=== PATIENT | female | born 1980 | race Native Hawaiian/Other Pacific Islander ===

== ENCOUNTER 2019-11-15 11:28 | Emergency (ER) | payer MEDICAID ==
--- NOTE | 2019-11-15 12:02 | Event Note ---
ED Screening Note Date of service: 11/15/19 ED Screening Note: This initial assessment/diagnostic orders/clinical plan/treatment(s) is/are subject to change based on patients health status, clinical progression and re- assessment by fellow clinical providers in the ED. Further treatment and workup at subsequent clinical providers discretion. Patient/guardian urged not to elope from the ED as their condition may be serious if not clinically assessed and managed. Initial orders include:
[2019-11-15] MEDS ORDERED: levETIRAcetam 1000 MG/NS 0.75% 1,000 MG/100 ML BAG IV ONE (12:55)
[2019-11-15] MEDS ORDERED: METOCLOPRAMIDE 10 MG/2 ML INJ IV ONE (12:55)
[2019-11-15] MEDS ORDERED: fentaNYL 100 MCG/2 ML INJ IV ONE (12:55)
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
--- NOTE | 2019-11-15 12:57 | Cat Scan Report ---
NONENHANCED CT SCAN OF THE HEAD: INDICATION / CLINICAL INFORMATION: 39 years Female; headache. TECHNIQUE: Routine CT head without contrast. All CT scans at this location are performed using CT dos e reduction for ALARA by means of automated exposure control. COMPARISON: None. FINDINGS: BRAIN / INTRACRANIAL CONTENTS: Abnormal CT scan; mixed attenuation right-sided subdural hematoma with maximum width of 7 mm; this is extending around the entire lateral convexity of the right cerebral h emisphere; increased is CT attenuation around right temporal lobe suggest more acute subdural hematom a; right to left midline shift of 3 mm; high convexity cortical sulci are effaced on the right side CRANIOCERVICAL JUNCTION: No significant abnormality. ORBITS: No significant abnormality of visualized orbits. SINUSES / MASTOIDS: No significant abnormality of the visualized paranasal sinuses or mastoid air sol ls. ADDITIONAL FINDINGS: None. IMPRESSION: Mixed attenuation subdural hematoma on the right side with maximum thickness of approximately 7 mm; r ight to left midline shift of approximately 3 mm the graft These findings are considered critical va lue. The exam was completed on 11/15/2019 11:43 AM. The exam was reviewed at 11:[address] Pacheco was notified at 11:53 AM. Signer Name: Pal Weiss MD Signed: 11/15/2019 12:53 PM Workstation Name: [email or web address]
[2019-11-15 13:48] LABS: Basophils % (Auto) 0.4 % (0.0-1.8); Eosinophils % (Auto) 0.3 % (0.0-4.3); Hematocrit 34.8 % (30.3-42.9); Hemoglobin 11.7 gm/dl (10.1-14.3); Lymphocytes # (Auto) 1.2 K/mm3 (1.2-5.4); Lymphocytes % (Auto) 21.6 % (13.4-35.0); Mean Corpuscular HGB Conc 34 % (30-34); Mean Corpuscular Volume 89 fl (79-97); Monocytes # (Auto) 0.4 K/mm3 (0.0-0.8); Monocytes % (Auto) 7.2 % (0.0-7.3); Platelet Count 181 K/mm3 (140-440); Red Cell Distribution Width 15.1 % (13.2-15.2)
[2019-11-15 13:51] VITALS: BP 102/81
[2019-11-15 13:57] LABS: INR 1.08 (0.87-1.13)
[2019-11-15 13:58] LABS: Partial Thromboplastin Time 33.7 Sec. (24.2-36.6)
[2019-11-15 14:11] LABS: Alanine Aminotransferase 168 units/L (7-56); Albumin 3.8 g/dL (3.9-5); BUN/Creatinine Ratio 18; Blood Urea Nitrogen 11 mg/dL (7-17); Calcium 8.8 mg/dL (8.4-10.2); Hemolysis Index 14
[2019-11-15 14:15] LABS: Bilirubin,Direct < 0.2 mg/dL (0-0.2)
== END 2019-11-15 14:03 | disposition short-term general hospital (02) ==
LOC: ED 11:28
DX: S06.5X0A Traumatic subdural hemorrhage without loss of consciousness, initial encounter (principal); Z21 Asymptomatic human immunodeficiency virus [HIV] infection status; Z88.1 Allergy status to other antibiotic agents; Y04.0XXA Assault by unarmed brawl or fight, initial encounter; Y93.89 Activity, other specified; Y92.89 Other specified places as the place of occurrence of the external cause; Y99.8 Other external cause status
CPT/HCPCS: 36415; 70450; 80048; 80076; 83735; 85025; 85610; 85730; 96365; 96375; 99285; J1953; J2765; J3010

== ENCOUNTER 2019-12-02 12:03 | Emergency (ER) | payer MEDICAID ==
[2019-12-02 12:08] VITALS: BP 123/84
--- NOTE | 2019-12-02 12:40 | Emergency Department Report ---
ED ENT HPI - General Chief complaint: Dental/Oral Stated complaint: LFT SIDE TOOTHACHE/SWELLING/PAIN Time Seen by Provider: 12/02/19 12:34 Source: patient Mode of arrival: Ambulatory Limitations: No Limitations - History of Present Illness Initial comments: This is a 39-year-old female nontoxic well in appearance with no signs of distress presents to the ED with complaint of toothache. Patient denies any facial swelling. Denies following up with a dentist. Denies any fever, chills, headache, nausea, vomiting, chest pain or SOB. Denies any other complaints. Denies any allergies. PMH is HIV. MD complaint: tooth pain -: days(s) Location: tooth # Severity: mild Severity scale (0 -10): 8 Quality: aching Consistency: constant Improves with: none Worsens with: none Context- Dental: history of dental caries, poor dental care Associated Symptoms: gum swelling, toothache. denies: fever, cough, pain with swallowing, sore throat, tinnitus, hearing loss, discharge from ear, rhinorrhea - Related Data Previous Rx's Medication Instructions Recorded Last Taken Type Clindamycin [Clindamycin CAP] 300 mg PO Q8H #21 cap 12/02/19 Unknown Rx Allergies Allergy/AdvReac Type Severity Reaction Status Date / Time cephalexin [From Keflex] Allergy Hives Verified 12/02/19 12:04 ED Dental HPI - General Chief complaint: Dental/Oral Stated complaint: LFT SIDE TOOTHACHE/SWELLING/PAIN Time Seen by Provider: 12/02/19 12:34 Source: patient Mode of arrival: Ambulatory Limitations: No Limitations - Related Data Previous Rx's Medication Instructions Recorded Last Taken Type Clindamycin [Clindamycin CAP] 300 mg PO Q8H #21 cap 12/02/19 Unknown Rx Allergies Allergy/AdvReac Type Severity Reaction Status Date / Time cephalexin [From Keflex] Allergy Hives Verified 12/02/19 12:04 ED Review of Systems ROS: Stated complaint: LFT SIDE TOOTHACHE/SWELLING/PAIN Other details as noted in HPI Constitutional: denies: chills, fever Eyes: denies: eye pain, eye discharge, vision change ENT: dental pain. denies: ear pain, throat pain Respiratory: denies: cough, shortness of breath, wheezing Cardiovascular: denies: chest pain, palpitations Endocrine: no symptoms reported Gastrointestinal: denies: abdominal pain, nausea, diarrhea Genitourinary: denies: urgency, dysuria, discharge Musculoskeletal: denies: back pain, joint swelling, arthralgia Skin: denies: rash, lesions Neurological: denies: headache, weakness, paresthesias Psychiatric: denies: anxiety, depression Hematological/Lymphatic: denies: easy bleeding, easy bruising ED Past Medical Hx - Past Medical History Hx HIV: Yes Additional medical history: Hep C/ SUBDURAL BLEED - Social History Smoking Status: Never Smoker Substance Use Type: None - Medications Home Medications: Home Medications Medication Instructions Recorded Confirmed Last Taken Type Clindamycin [Clindamycin CAP] 300 mg PO Q8H #21 cap 12/02/19 Unknown Rx ED Physical Exam - General Limitations: No Limitations General appearance: alert, in no apparent distress - Head Head exam: Present: atraumatic, normocephalic - Expanded ENT Exam Expanded Ear exam: Present: normal external inspection Mouth exam: Present: normal external inspection. Absent: drooling, trismus, muffled voice Teeth exam: Present: dental caries, fractured tooth #, dental tenderness #, gingival enlargement, other (no facial swelling. no cellulitis.) Throat exam: Positive: normal inspection, other (uvula midline). Negative: tonsillar erythema, tonsillomegaly, tonsillar exudate, R peritonsillar mass, L peritonsillar mass - Neck Neck exam: Present: normal inspection, full ROM. Absent: tenderness, meningismus, lymphadenopathy - Extremities Exam Extremities exam: Present: full ROM - Back Exam Back exam: Present: full ROM - Neurological Exam Neurological exam: Present: alert, oriented X3, normal gait - Psychiatric Psychiatric exam: Present: normal affect, normal mood - Skin Skin exam: Present: warm, dry, intact, normal color. Absent: rash ED Course Vital Signs 12/02/19 12:07 Temperature 98 F Pulse Rate 79 Respiratory 18 Rate Blood Pressure 123/84 [Left] O2 Sat by Pulse 100 Oximetry - Reevaluation(s) Reevaluation #1: 12/02/19 12:41 Patient is speaking in full sentences with signs of distress noted. ED Medical Decision Making - Medical Decision Making Patient was instructed to Follow-up with a dentist doctor in 2 days or if symptoms worsen and continue return to emergency room as soon as possible. At time of discharge, the patient does not seem toxic or ill in appearance. No acute signs of distress noted. Patient agrees to discharge treatment plan of care. No further questions noted by the patient. Critical care attestation.: If time is entered above; I have spent that time in minutes in the direct care of this critically ill patient, excluding procedure time. ED Disposition Clinical Impression: Dental caries, Gingivitis Disposition: MED SCREENING EXAM-CONT Is pt being admited?: No Does the pt Need Aspirin: No Condition: Stable Instructions: Dental Caries (ED), Gingivitis (ED) Additional Instructions: Follow-up with a dentist doctor in 2 days or if symptoms worsen and continue return to emergency room as soon as possible. Prescriptions: Clindamycin [Clindamycin CAP] 300 mg PO Q8H #21 cap Referrals: PRIMARY CAREMD [Referring] - 3-5 Days GIOVANNA CONLEY MD [Staff Physician] - 3-5 Days [facility] [Outside] - 3-5 Days
== END 2019-12-02 13:02 | disposition home or self-care (01) ==
LOC: ED 12:03
DX: K05.10 Chronic gingivitis, plaque induced (principal); K02.9 Dental caries, unspecified; Z21 Asymptomatic human immunodeficiency virus [HIV] infection status; Z79.899 Other long term (current) drug therapy
CPT/HCPCS: 99282

== ENCOUNTER 2019-12-17 08:02 | Emergency (ER) | payer MEDICAID ==
[2019-12-17 08:10] VITALS: BP 114/66
--- NOTE | 2019-12-17 09:59 | Emergency Department Report ---
ED General Adult HPI - General Chief complaint: Upper Respiratory Infection Stated complaint: ASTHMA Time Seen by Provider: 12/17/19 09:39 Source: patient Mode of arrival: Ambulatory Limitations: No Limitations - History of Present Illness Initial comments: Patient is a 39-year-old F [place] female who is presenting with cough cold and congestion. Patient does have a history of asthma is has a productive cough with clear sputum for the last 4 days. She denies fevers chills. Patient states she no longer has medication for her nebulizer machine. Patient does have a rescue inhaler but does not seem to have any relief with rescue inhaler. Patient denies nausea vomiting neck stiffness or sore throat at this time. She denies body aches. - Related Data Previous Rx's Medication Instructions Recorded Last Taken Type Clindamycin [Clindamycin CAP] 300 mg PO Q8H #21 cap 12/02/19 Unknown Rx ALBUTEROL NEB's [Proventil 0.083% 5 mg IH TID PRN #20 neb 12/17/19 Unknown Rx NEBS] Brompheniramine/Pseudoephed/Dm 5 ml PO Q6HR PRN #100 syrup 12/17/19 Unknown Rx [Bromfed Dm Cough Syrup] predniSONE [Deltasone] 20 mg PO QDAY #5 tab 12/17/19 Unknown Rx Allergies Allergy/AdvReac Type Severity Reaction Status Date / Time cephalexin [From Keflex] Allergy Hives Verified 12/02/19 12:04 Penicillins Allergy Hives Verified 12/02/19 12:44 ED Review of Systems ROS: Stated complaint: ASTHMA Other details as noted in HPI Comment: All other systems reviewed and negative ED Past Medical Hx - Past Medical History Previous Medical History?: Yes Hx Asthma: Yes Hx HIV: Yes Additional medical history: Hep C/ SUBDURAL BLEED - Surgical History Past Surgical History?: No - Social History Smoking Status: Never Smoker Substance Use Type: None - Medications Home Medications: Home Medications Medication Instructions Recorded Confirmed Last Taken Type Clindamycin [Clindamycin CAP] 300 mg PO Q8H #21 cap 12/02/19 Unknown Rx ALBUTEROL NEB's [Proventil 0.083% 5 mg IH TID PRN #20 neb 12/17/19 Unknown Rx NEBS] Brompheniramine/Pseudoephed/Dm 5 ml PO Q6HR PRN #100 syrup 12/17/19 Unknown Rx [Bromfed Dm Cough Syrup] predniSONE [Deltasone] 20 mg PO QDAY #5 tab 12/17/19 Unknown Rx ED Physical Exam - General Limitations: No Limitations General appearance: alert, in no apparent distress - Head Head exam: Present: atraumatic, normocephalic - Eye Eye exam: Present: normal appearance - ENT ENT exam: Present: normal orophraynx, mucous membranes moist - Neck Neck exam: Present: normal inspection - Respiratory Respiratory exam: Present: rhonchi, prolonged expiratory. Absent: normal lung sounds bilaterally, respiratory distress, wheezes, rales - Cardiovascular Cardiovascular Exam: Present: regular rate, normal rhythm, normal heart sounds. Absent: systolic murmur, diastolic murmur, rubs, gallop - GI/Abdominal GI/Abdominal exam: Present: soft, normal bowel sounds. Absent: distended, tenderness, guarding, rebound - Extremities Exam Extremities exam: Present: normal inspection - Back Exam Back exam: Present: normal inspection - Neurological Exam Neurological exam: Present: alert, oriented X3 - Psychiatric Psychiatric exam: Present: normal affect, normal mood - Skin Skin exam: Present: warm, dry, intact, normal color. Absent: rash ED Course Vital Signs 12/17/19 08:06 Temperature 97.8 F Pulse Rate 77 Respiratory 16 Rate Blood Pressure 114/66 O2 Sat by Pulse 98 Oximetry ED Medical Decision Making - Medical Decision Making Patient with bronchitic cough and prolonged expiratory phase. Patient said O2 sat is within normal limits. Patient likely with mild asthma exacerbation. Patient be started on steroid therapy to halt the progress of this disease. Patient also started on albuterol for her nebulizer machine. Patient discharged home. Critical care attestation.: If time is entered above; I have spent that time in minutes in the direct care of this critically ill patient, excluding procedure time. ED Disposition Clinical Impression: Bronchospasm Asthma exacerbation Qualifiers: Asthma severity: mild Asthma persistence: unspecified Qualified Code(s): J45.901 - Unspecified asthma with (acute) exacerbation Acute bronchitis Qualifiers: Bronchitis organism: unspecified organism Qualified Code(s): J20.9 - Acute bronchitis, unspecified Disposition: DC- TO HOME OR SELFCARE Is pt being admited?: Yes Does the pt Need Aspirin: No Condition: Stable Instructions: Acute Bronchitis (ED), Asthma (ED) Referrals: PRIMARY CARE, [Primary Care Provider] - 3-5 Days Time of Disposition: 09:58
== END 2019-12-17 10:27 | disposition home or self-care (01) ==
LOC: ED 08:02
DX: J45.901 Unspecified asthma with (acute) exacerbation (principal); J20.9 Acute bronchitis, unspecified
CPT/HCPCS: 99282

== ENCOUNTER 2020-04-06 14:52 | Emergency (ER) | payer MEDICAID ==
--- NOTE | 2020-04-06 15:19 | Event Note ---
ED Screening Note ED Screening Note: states that she fell and [place] states since then having RYAN, n/v, tingling in the BUE no vision changes, no gait disturbance, no speech disturbance, no numbness weakness BLE/BUE hx of SDH s/p craniotomy performed at [place] PMx HIV, asthma allergy: keflex/PCN This initial assessment/diagnostic orders/clinical plan/treatment(s) is/are subject to change based on patients health status, clinical progression and re- assessment by fellow clinical providers in the ED. Further treatment and workup at subsequent clinical providers discretion. Patient/guardian urged not to elope from the ED as their condition may be serious if not clinically assessed and managed. Initial orders include: CT head
--- NOTE | 2020-04-06 16:18 | Cat Scan Report ---
CT head/brain wo con INDICATION / CLINICAL INFORMATION: 39 years Female; fall hit head a week ago, n/v, hx subdural. TECHNIQUE: Routine CT head without contrast. All CT scans at this location are performed using CT dos e reduction for ALARA by means of automated exposure control. COMPARISON: The study is compared to the previous CT of 11/15/2019. FINDINGS: BRAIN / INTRACRANIAL CONTENTS: There has been interval right frontal craniotomy and evacuation of the mixed attenuation right subdural hematoma from the previous CT. There is no CT evidence of acute int racranial hemorrhage. The ventricular system is appropriate in size and configuration. The brain pare nchyma appears to demonstrate appropriate attenuation without significant interval change. ORBITS: No significant abnormality of visualized orbits. SINUSES / MASTOIDS: There is small air-fluid level along the posterior left sphenoid sinus. CRANIOCERVICAL JUNCTION: No significant abnormality. ADDITIONAL FINDINGS: None. IMPRESSION: 1. Status post interval right frontal craniotomy and evacuation of right subdural hematoma from 020. There is no CT evidence of acute intracranial hemorrhage. 2. There is small air-fluid level along the posterior left sphenoid sinus. Signer Name: Mumtaz Acosta MD Signed: 04/06/2020 4:13 PM Workstation Name: [id number]
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
[2020-04-06 18:27] VITALS: BP 109/64
[2020-04-06] MEDS ORDERED: ONDANSETRON 4 MG ODT TAB PO ONE (18:29)
[2020-04-06] MEDS: ACETAMINOPHEN 500 MG TAB PO ONE ×2 (18:36→18:46)
== END 2020-04-06 18:47 | disposition home or self-care (01) ==
LOC: ED 14:52
DX: S06.0X9A Concussion with loss of consciousness of unspecified duration, initial encounter (principal); S00.03XA Contusion of scalp, initial encounter; J45.909 Unspecified asthma, uncomplicated; Z21 Asymptomatic human immunodeficiency virus [HIV] infection status; Z79.899 Other long term (current) drug therapy; W19.XXXA Unspecified fall, initial encounter; Y93.89 Activity, other specified; Y92.89 Other specified places as the place of occurrence of the external cause; Y99.8 Other external cause status
CPT/HCPCS: 70450; 99283; Q0162

== ENCOUNTER 2020-04-23 12:46 | Emergency (ER) | payer MEDICAID ==
[2020-04-23 13:10] VITALS: BP 143/84
== END 2020-04-23 17:07 | disposition left against medical advice (07) ==
LOC: ED 12:46
DX: R05 Cough (principal); R06.00 Dyspnea, unspecified; Z53.21 Procedure and treatment not carried out due to patient leaving prior to being seen by health care provider

== ENCOUNTER 2020-05-24 23:25 | Emergency (ER) | payer MEDICAID ==
--- NOTE | 2020-05-24 23:43 | Emergency Department Report ---
History of Present Illness - General Chief Complaint: Overdose Stated Complaint: OVERDOSE Time Seen by Provider: 05/24/20 23:37 - History of Present Illness Initial Comments: Patient is a 39-year-old female that presents emergency room for an overdose. Patient brought in by EMS. EMS gave the patient Narcan because the patient was unresponsive and satting 69%. After the Narcan, the patient became alert and oriented and her vital signs stabilized. Patient stated she took heroin. Patient states she overdosed on heroin in order to try to kill herself. Patient states been having suicidal ideations for weeks. Patient states she overdosed 1 week ago. Patient states she is been having a lot of life stressors due to familial disputes. Patient denies homicidal ideations. Patient denies hallucinations. MD Complaint: intentional overdose - Related Data Home Medications Medication Instructions Recorded Confirmed Last Taken Albuterol Sulfate [Proventil Hfa] 1 puff INHALATION PRN 05/25/20 05/25/20 Unknown Biktarvy 50-200-25 mg (Nf) 1 tab PO DAILY 05/25/20 05/25/20 Unknown Duloxetine HCl [Drizalma Sprinkle] 40 mg PO DAILY 05/25/20 05/25/20 Unknown Gabapentin [Neurontin] 300 mg PO Q8HR 05/25/20 05/25/20 Unknown Sulfamethoxazole/Trimethoprim 1 each PO DAILY 05/25/20 05/25/20 Unknown [Bactrim 400-80 mg Tablet] Allergies Allergy/AdvReac Type Severity Reaction Status Date / Time cephalexin [From Keflex] Allergy Hives Verified 04/23/20 13:08 Penicillins Allergy Hives Verified 04/23/20 13:08 ED Review of Systems ROS: Stated complaint: OVERDOSE Other details as noted in HPI Constitutional: denies: chills, fever Eyes: denies: eye pain, eye discharge, vision change ENT: denies: ear pain, throat pain Respiratory: denies: cough, shortness of breath, wheezing Cardiovascular: denies: chest pain, palpitations Endocrine: no symptoms reported Gastrointestinal: denies: abdominal pain, nausea, diarrhea Genitourinary: denies: urgency, dysuria, discharge Musculoskeletal: denies: back pain, joint swelling, arthralgia Skin: denies: rash, lesions Neurological: denies: headache, weakness, paresthesias Psychiatric: depression, suicidal thoughts. denies: anxiety Hematological/Lymphatic: denies: easy bleeding, easy bruising ED Past Medical Hx - Past Medical History Previous Medical History?: Yes Hx Asthma: Yes Hx HIV: Yes Additional medical history: Hep C/ SUBDURAL BLEED/ HIV - Surgical History Past Surgical History?: Yes Additional Surgical History: Craniotomy 11/2019 - Family History Family history: no significant - Social History Smoking Status: Never Smoker Substance Use Type: None, Other - Medications Home Medications: Home Medications Medication Instructions Recorded Confirmed Last Taken Type Albuterol Sulfate [Proventil Hfa] 1 puff INHALATION PRN 05/25/20 05/25/20 U nknown History Biktarvy 50-200-25 mg (Nf) 1 tab PO DAILY 05/25/20 05/25/20 Unknown History Duloxetine HCl [Drizalma Sprinkle] 40 mg PO DAILY 05/25/20 05/25/20 Unknown History Gabapentin [Neurontin] 300 mg PO Q8HR 05/25/20 05/25/20 Unknown History Sulfamethoxazole/Trimethoprim 1 each PO DAILY 05/25/20 05/25/20 Unknown History [Bactrim 400-80 mg Tablet] ED Physical Exam - General Limitations: No Limitations General appearance: alert, in no apparent distress - Head Head exam: Present: atraumatic, normocephalic - Eye Eye exam: Present: normal appearance - ENT ENT exam: Present: mucous membranes moist - Neck Neck exam: Present: normal inspection - Respiratory Respiratory exam: Present: normal lung sounds bilaterally. Absent: respiratory distress - Cardiovascular Cardiovascular Exam: Present: regular rate, normal rhythm. Absent: systolic murmur, diastolic murmur, rubs, gallop - GI/Abdominal GI/Abdominal exam: Present: soft, normal bowel sounds - Extremities Exam Extremities exam: Present: normal inspection - Back Exam Back exam: Present: normal inspection - Neurological Exam Neurological exam: Present: alert, oriented X3 - Psychiatric Psychiatric exam: Present: depressed, anxious - Skin Skin exam: Present: warm, dry, intact, normal color. Absent: rash ED Course Vital Signs 05/24/20 05/25/20 05/25/20 23:44 00:15 00:30 Temperature 97.9 F Pulse Rate 133 H 111 H 108 H Respiratory 20 19 16 Rate Blood Pressure 122/78 117/72 Blood Pressure 141/72 [Left] O2 Sat by Pulse 98 97 94 Oximetry 05/25/20 05/25/20 05/25/20 00:45 01:00 01:15 Temperature Pulse Rate 104 H 102 H Respiratory 15 17 Rate Blood Pressure 115/74 127/80 134/84 Blood Pressure [Left] O2 Sat by Pulse 93 92 93 Oximetry 05/25/20 05/25/20 05/25/20 01:31 01:45 02:00 Temperature Pulse Rate 87 Respiratory 19 Rate Blood Pressure 134/84 121/84 118/57 Blood Pressure [Left] O2 Sat by Pulse 99 93 95 Oximetry 05/25/20 05/25/20 05/25/20 02:15 02:30 02:45 Temperature Pulse Rate 84 94 H 89 Respiratory 18 18 19 Rate Blood Pressure 126/69 125/79 107/63 Blood Pressure [Left] O2 Sat by Pulse 95 95 94 Oximetry 05/25/20 05/25/20 05/25/20 03:00 03:15 04:15 Temperature Pulse Rate 110 H Respiratory 18 12 14 Rate Blood Pressure 141/90 126/84 114/71 Blood Pressure [Left] O2 Sat by Pulse 99 99 100 Oximetry 05/25/20 05/25/20 05/25/20 04:30 04:45 05:00 Temperature Pulse Rate 94 H 86 Respiratory 22 17 19 Rate Blood Pressure 124/71 113/72 126/77 Blood Pressure [Left] O2 Sat by Pulse 96 96 97 Oximetry 05/25/20 05/25/20 05/25/20 05:45 06:01 06:15 Temperature Pulse Rate 84 100 H 78 Respiratory 19 23 16 Rate Blood Pressure 120/77 108/68 120/74 Blood Pressure [Left] O2 Sat by Pulse 99 100 97 Oximetry 05/25/20 05/25/20 05/25/20 06:30 06:45 07:00 Temperature Pulse Rate 81 74 86 Respiratory 14 9 L 20 Rate Blood Pressure 97/56 101/63 109/65 Blood Pressure [Left] O2 Sat by Pulse 98 97 Oximetry 05/25/20 05/25/20 05/25/20 07:15 07:21 07:30 Temperature Pulse Rate 76 72 84 Respiratory 17 18 20 Rate Blood Pressure 105/60 99/58 Blood Pressure 105/60 [Left] O2 Sat by Pulse 97 98 Oximetry 05/25/20 05/25/20 05/25/20 07:45 08:00 08:15 Temperature Pulse Rate 93 H 97 H 72 Respiratory 14 14 18 Rate Blood Pressure 99/58 126/69 113/67 Blood Pressure [Left] O2 Sat by Pulse 100 99 100 Oximetry 05/25/20 05/25/20 05/25/20 08:30 08:45 09:01 Temperature Pulse Rate 75 69 82 Respiratory 17 17 21 Rate Blood Pressure 103/61 100/55 129/91 Blood Pressure [Left] O2 Sat by Pulse 99 98 Oximetry 05/25/20 05/25/20 05/25/20 09:15 09:30 09:31 Temperature Pulse Rate 72 86 Respiratory 19 16 18 Rate Blood Pressure 121/83 133/85 Blood Pressure [Left] O2 Sat by Pulse 99 99 Oximetry 05/25/20 05/25/20 05/25/20 09:45 10:01 10:15 Temperature Pulse Rate 85 69 88 Respiratory 15 13 14 Rate Blood Pressure 108/66 146/85 133/71 Blood Pressure [Left] O2 Sat by Pulse 93 95 90 Oximetry 05/25/20 05/25/20 05/25/20 10:31 10:45 11:02 Temperature Pulse Rate Respiratory Rate Blood Pressure 133/71 133/71 133/71 Blood Pressure [Left] O2 Sat by Pulse 79 L Oximetry 05/25/20 05/25/20 05/25/20 11:17 11:31 12:13 Temperature Pulse Rate Respiratory Rate Blood Pressure 133/71 133/71 133/71 Blood Pressure [Left] O2 Sat by Pulse 94 75 L Oximetry 05/25/20 05/25/20 05/25/20 12:16 12:29 16:17 Temperature 98.6 F Pulse Rate 72 63 Respiratory 18 18 Rate Blood Pressure 133/71 Blood Pressure 133/71 126/71 [Left] O2 Sat by Pulse 99 99 Oximetry - Reevaluation(s) Reevaluation #1: Initial evaluation done. Patient placed on a 1013. 05/24/20 23:45 Reevaluation #2: Patient's vital signs are stable. Patient on equipment monitor phototypesetting. Patient answering questions appropriately. 05/25/20 00:53 Reevaluation #3: Patient resting in room comfortably. Patient easily arousable. Patient's vital signs are stable. No hypoxia noted 05/25/20 02:50 JIMENEZ HELLER [facility] 1980 [id number] 05/25/20 03:21 - Nurse Note by MALICK WILKES Acct Num: [id number] : 1980 Patient Age: 39 [place] poison control: symptoms include - [employer]IC depression -RR depression -possible upset stomach recommendations: -repeat liver function enzyme (if continues to go up, give them a call back) -any symptomatic presentation: give supportive care info taken from [place]/ [facility] poison control. Initialized on 05/25/20 03:21 - END OF NOTE Reevaluation #4: Patient resting comfortably in the ER room. Patient has no signs of distress. Patient has normal oxygen saturation. Patient has received 2 L of fluid and the patient will have a repeat chemistry. 05/25/20 05:11 Reevaluation #5: I discussed all results with patient. I discussed plan of care with patient. Patient agrees with plan of care. Patient will remain in the ER as an ER hold. Patient is already on a 1013. Patient's final disposition will come from our psychiatry team. 05/25/20 05:53 ED Medical Decision Making - Lab Data Result diagrams: 05/25/20 00:00 05/25/20 05:05 - EKG Data -: EKG Interpreted by Me EKG shows normal: sinus rhythm, axis, intervals, QRS complexes, ST-T waves Rate: tachycardia - Medical Decision Making Patient is a 39-year-old female that presents emergency room with complaints of a heroin overdose, suicidal ideation and suicide attempt. Patient states she took the heroin in order to kill herself. After the initial evaluation, the patient was placed on a 1013 and an ER hold. Patient had labs done which showed elevated liver enzymes and abnormal chemistry. Poison control was consulted. Recommendations were received from poison control. Patient was given Narcan by EMS prior to arrival and the patient responded well. Patient's initial evaluation by EMS showed the patient to be minimally to unresponsive, decreased respirations and hypoxia. Immediately after Narcan in the field, the patient became more arousable and her vital signs stabilized. Patient had a PRN Narcan order placed. Patient found to be acutely intoxicated with alcohol. Patient also found to have a UTI. Patient at this time is medically cleared. Patient's final disposition will come from our psychiatry team. - Differential Diagnosis Overdose, suicide attempt, depression, suicidal ideations, Critical care attestation.: If time is entered above; I have spent that time in minutes in the direct care of this critically ill patient, excluding procedure time. ED Disposition Clinical Impression: Suicide attempt, Suicidal ideation Heroin overdose Qualifiers: Encounter type: initial encounter Injury intent: intentional self-harm Qualified Code(s): T40.1X2A - Poisoning by heroin, intentional self-harm, initial encounter Acute alcohol intoxication Qualifiers: Complication of substance-induced condition: with unspecified complication Qualified Code(s): F10.929 - Alcohol use, unspecified with intoxication, unspeci fied Depressed Qualifiers: Depression Type: unspecified Qualified Code(s): F32.9 - Major depressive disorder, single episode, unspecified UTI (urinary tract infection) Qualifiers: Urinary tract infection type: acute cystitis Hematuria presence: with hematuria Qualified Code(s): N30.01 - Acute cystitis with hematuria Disposition: DC/TX-65 PSY HOSP/PSY UNIT Is pt being admited?: No Does the pt Need Aspirin: No Condition: Stable Instructions: Urinary Tract Infection in Women (ED) Referrals: PRIMARY CARE, [Primary Care Provider] - 3-5 Days Time of Disposition: 05:55
[2020-05-24] MEDS ORDERED: SODIUM CHLORIDE 0.9% 1000 ML 1,000 ML IV ONE (23:45)
[2020-05-24] MEDS ORDERED: NALOXONE 0.4 MG/1 ML INJ IV PRN (23:46)
[2020-05-25 01:16] LABS: Basophils % (Auto) 0.3 % (0.0-1.8); Eosinophils # (Auto) 0.1 K/mm3 (0.0-0.4); Eosinophils % (Auto) 1.7 % (0.0-4.3); Hematocrit 35.2 % (30.3-42.9); Hemoglobin 11.8 gm/dl (10.1-14.3); Mean Corpuscular HGB Conc 34 % (30-34); Mean Corpuscular Volume 95 fl (79-97); Monocytes # (Auto) 0.5 K/mm3 (0.0-0.8); Platelet Count 118 K/mm3 (140-440); Red Blood Count 3.72 M/mm3 (3.65-5.03); Red Cell Distribution Width 18.8 % (13.2-15.2)
[2020-05-25 01:28] LABS: Alanine Aminotransferase 111 units/L (7-56); Albumin 3.7 g/dL (3.9-5); BUN/Creatinine Ratio 19; Blood Urea Nitrogen 19 mg/dL (7-17); Calcium 8.2 mg/dL (8.4-10.2); Hemolysis Index 3
[2020-05-25 02:54] LABS: Amphetamine Screen,Urine PRESUMPTIVE POSITIVE; Benzodiazepines Screen,Urine PRESUMPTIVE NEGATIVE; Cannabinoid Screen,Urine PRESUMPTIVE NEGATIVE; Cocaine Screen,Urine PRESUMPTIVE NEGATIVE; Methadone Screen,Urine PRESUMPTIVE NEGATIVE; Opiate Screen,Urine PRESUMPTIVE POSITIVE
[2020-05-25 02:57] LABS: Bacteria,Urine 1+ /HPF (Negative); Bilirubin,Urine NEG (Negative); Blood,Urine LG (Negative); Color,Urine Amber (Yellow); Mucus,Urine 3+ /HPF
[2020-05-25 02:58] LABS: Protein,Urine >500 mg/dL (Negative)
[2020-05-25] MEDS ORDERED: SODIUM CHLORIDE 0.9% 1000 ML 1,000 ML IV ONE (03:56)
[2020-05-25 05:46] LABS: Alanine Aminotransferase 90 units/L (7-56); Albumin 3.1 g/dL (3.9-5); Blood Urea Nitrogen 16 mg/dL (7-17); Calcium 6.9 mg/dL (8.4-10.2); Hemolysis Index 13
[2020-05-25 05:47] LABS: BUN/Creatinine Ratio 27
[2020-05-25] MEDS ORDERED: FAMOTIDINE 20 MG TAB PO ONE (12:30)
[2020-05-25 16:17] VITALS: BP 126/71
== END 2020-05-25 19:36 ==
LOC: ED 23:25
DX: T40.1X2A Poisoning by heroin, intentional self-harm, initial encounter (principal); R45.851 Suicidal ideations; F32.9 Major depressive disorder, single episode, unspecified; F10.129 Alcohol abuse with intoxication, unspecified; N39.0 Urinary tract infection, site not specified; J45.909 Unspecified asthma, uncomplicated; Z21 Asymptomatic human immunodeficiency virus [HIV] infection status; Z98.890 Other specified postprocedural states; Z79.899 Other long term (current) drug therapy; Z88.0 Allergy status to penicillin; Z88.8 Allergy status to other drugs, medicaments and biological substances; Y92.89 Other specified places as the place of occurrence of the external cause
CPT/HCPCS: 36415; 80053; 80307; 81001; 85025; 87086; 93005; 96360; 96361; 99285; J7030; 80320; G0480

== ENCOUNTER 2020-12-30 05:50 | Emergency (ER) | payer MEDICAID ==
[2020-12-30] MEDS ORDERED: ONDANSETRON 4 MG/2 ML INJ IV ONE ×2 (06:13→09:01)
[2020-12-30] MEDS ORDERED: PANTOPRAZOLE 40 MG INJ IV ONE (06:13)
[2020-12-30] MEDS ORDERED: SODIUM CHLORIDE 0.9% 1000 ML 1,000 ML IV ONE ×3 (06:14→06:53)
--- NOTE | 2020-12-30 06:16 | Emergency Department Report ---
ED Chest Pain HPI - General Chief Complaint: Chest Pain Stated Complaint: CP/ SOB Time Seen by Provider: 12/30/20 06:06 Source: EMS Mode of arrival: Stretcher Limitations: No Limitations - History of Present Illness Initial Comments: This is a 40-year-old female presents to the emergency department via EMS from home with complaint of some midsternal chest pain and some abdominal discomfort that started about 1 AM this morning. Patient began to have copious nausea with vomiting and says that she had some blood in her vomitus. This is all associated with some shortness of breath as well. Patient has a past medical history of asthma, HIV, hypertension, hepatitis C and had a previous subdural bleed with subsequent craniotomy in 2019. Reports say that her initial oxygen saturation was 80% on scene. She was given some oxygen supplementation via nasal cannula with improvement. Patient presents to the emergency department with hypotension asking for water or ice chips. No recent travel or sick contacts at home. She denies any tobacco use but does admit to alcohol use last night. The patient was last here in May of last year for an intentional heroin overdose. She denies any recent travel or sick contacts at home. - Related Data Home Medications Medication Instructions Recorded Confirmed Last Taken Albuterol Sulfate [Proventil Hfa] 1 puff INHALATION PRN 05/25/20 05/25/20 Unknown Biktarvy 50-200-25 mg (Nf) 1 tab PO DAILY 05/25/20 05/25/20 Unknown Duloxetine HCl [Drizalma Sprinkle] 40 mg PO DAILY 05/25/20 05/25/20 Unknown Gabapentin [Neurontin] 300 mg PO Q8HR 05/25/20 05/25/20 Unknown Sulfamethoxazole/Trimethoprim 1 each PO DAILY 05/25/20 05/25/20 Unknown [Bactrim 400-80 mg Tablet] Allergies Allergy/AdvReac Type Severity Reaction Status Date / Time cephalexin [From Keflex] Allergy Hives Verified 04/23/20 13:08 codeine Allergy Vomiting Verified 12/30/20 07:36 Penicillins Allergy Hives Verified 04/23/20 13:08 Heart Score - HEART Score History: Slightly suspicious EKG: Normal Age: < 45 Risk factors: 1-2 risk factors Troponin: < normal limit HEART Score: 1 - Critical Actions Critical Actions: 0-3 pts:0.9-1.7%risk of adverse cardiac event.Candidate for discharge ED Review of Systems ROS: Stated complaint: CP/ SOB Other details as noted in HPI Comment: All other systems reviewed and negative Constitutional: denies: chills, fever Eyes: denies: eye pain, vision change ENT: denies: ear pain, throat pain Respiratory: shortness of breath. denies: cough Cardiovascular: chest pain. denies: palpitations Gastrointestinal: abdominal pain, nausea, vomiting, hematemesis Genitourinary: denies: dysuria, discharge Musculoskeletal: denies: back pain, arthralgia Skin: denies: rash, lesions Neurological: denies: headache, weakness ED Past Medical Hx - Past Medical History Previous Medical History?: Yes Hx Hypertension: Yes Hx Asthma: Yes Hx HIV: Yes Additional medical history: Hep C/ SUBDURAL BLEED/ HIV - Surgical History Past Surgical History?: Yes Additional Surgical History: Craniotomy 11/2019 - Social History Smoking Status: Unknown if ever smoked - Medications Home Medications: Home Medications Medication Instructions Recorded Confirmed Last Taken Type Albuterol Sulfate [Proventil Hfa] 1 puff INHALATION PRN 05/25/20 05/25/20 Unknown History Biktarvy 50-200-25 mg (Nf) 1 tab PO DAILY 05/25/20 05/25/20 Unknown History Duloxetine HCl [Drizalma Sprinkle] 40 mg PO DAILY 05/25/20 05/25/20 Unknown History Gabapentin [Neurontin] 300 mg PO Q8HR 05/25/20 05/25/20 Unknown History Sulfamethoxazole/Trimethoprim 1 each PO DAILY 05/25/20 05/25/20 Unknown History [Bactrim 400-80 mg Tablet] ED Physical Exam - General Limitations: No Limitations - Other Other exam information: GENERAL: The patient is ill-appearing. HENT: Normocephalic. Atraumatic. Patient has moist mucous membranes. EYES: Extraocular motions are intact. Pupils equal reactive to light bilaterally. Pale conjunctiva. NECK: Supple. Trachea is midline. CHEST/LUNGS: Clear to auscultation. There is no respiratory distress noted. HEART/CARDIOVASCULAR: Regular. There is mild tachycardia. There is no murmur. ABDOMEN: Abdomen is soft. There is some mild generalized abdominal tenderness to palpation. No guarding. Patient has normal bowel sounds. There is no a bdominal distention. SKIN: Pale, cool skin. NEURO: The patient is awake, alert, and oriented. The patient is cooperative. The patient has no focal neurologic deficits. Normal speech. MUSCULOSKELETAL: There is no tenderness or deformity. There is no limitation range of motion. ED Course Vital Signs 12/30/20 12/30/20 12/30/20 05:55 05:58 06:10 Temperature Pulse Rate 100 H 100 H 100 H Respiratory 19 24 20 Rate Blood Pressure Blood Pressure 67/30 [right arm] O2 Sat by Pulse 91 Oximetry 12/30/20 12/30/20 12/30/20 06:13 06:16 06:30 Temperature Pulse Rate 104 H 104 H 90 Respiratory 36 H 29 H 24 Rate Blood Pressure 51/33 Blood Pressure [right arm] O2 Sat by Pulse 100 Oximetry 12/30/20 12/30/20 12/30/20 06:46 07:00 07:16 Temperature Pulse Rate 89 90 91 H Respiratory 23 25 H 13 Rate Blood Pressure 94/20 95/27 99/37 Blood Pressure [right arm] O2 Sat by Pulse 96 100 Oximetry 12/30/20 12/30/20 12/30/20 07:30 07:46 08:00 Temperature Pulse Rate 91 H 99 H 100 H Respiratory 13 17 14 Rate Blood Pressure 107/41 77/43 95/22 Blood Pressure [right arm] O2 Sat by Pulse 100 100 100 Oximetry 12/30/20 12/30/20 12/30/20 08:16 08:30 08:46 Temperature Pulse Rate 91 H 99 H 96 H Respiratory 20 17 24 Rate Blood Pressure 83/31 83/28 83/28 Blood Pressure [right arm] O2 Sat by Pulse 100 100 88 Oximetry 12/30/20 12/30/20 12/30/20 08:49 08:55 09:00 Temperature 91.9 F L 91.2 F L Pulse Rate 96 H 96 H 104 H Respiratory 20 20 13 Rate Blood Pressure 87/30 87/52 87/52 Blood Pressure [right arm] O2 Sat by Pulse 100 94 100 Oximetry 12/30/20 12/30/20 12/30/20 09:05 09:16 09:30 Temperature 92.3 F L Pulse Rate 103 H 103 H 102 H Respiratory 29 H 29 H 31 H Rate Blood Pressure 90/57 90/57 131/99 Blood Pressure [right arm] O2 Sat by Pulse 96 92 100 Oximetry 12/30/20 12/30/20 12/30/20 09:34 09:40 09:46 Temperature 92.1 F L 91.5 F L Pulse Rate 102 H 97 H 99 H Respiratory 30 H 28 H 21 Rate Blood Pressure 131/99 87/49 51/22 Blood Pressure [right arm] O2 Sat by Pulse 100 100 98 Oximetry 12/30/20 12/30/20 12/30/20 10:00 10:16 10:31 Temperature 91 F L Pulse Rate 100 H 94 H 93 H Respiratory 25 H 23 30 H Rate Blood Pressure 67/46 98/53 99/42 Blood Pressure [right arm] O2 Sat by Pulse 100 100 94 Oximetry 12/30/20 12/30/20 12/30/20 10:46 11:00 11:07 Temperature Pulse Rate 92 H 96 H 96 H Respiratory 14 16 16 Rate Blood Pressure 89/44 98/44 98/44 Blood Pressure [right arm] O2 Sat by Pulse 100 100 100 Oximetry 12/30/20 12/30/20 12/30/20 11:09 11:16 11:30 Temperature 91.3 F L Pulse Rate 96 H 104 H 100 H Respiratory 30 H 20 18 Rate Blood Pressure 87/48 87/45 83/50 Blood Pressure [right arm] O2 Sat by Pulse 96 100 100 Oximetry 12/30/20 12/30/20 12/30/20 11:46 12:00 12:08 Temperature Pulse Rate 96 H 91 H Respiratory 35 H 15 Rate Blood Pressure 71/17 87/45 141/47 Blood Pressure [right arm] O2 Sat by Pulse 94 99 Oximetry 12/30/20 12/30/20 12/30/20 12:16 12:30 12:46 Temperature Pulse Rate 87 81 56 L Respiratory 27 H 22 8 L Rate Blood Pressure 119/82 68/43 96/31 Blood Pressure [right arm] O2 Sat by Pulse 80 L Oximetry 12/30/20 12/30/20 12/30/20 13:00 13:05 13:16 Temperature Pulse Rate 102 H 107 H 104 H Respiratory 25 H 26 H Rate Blood Pressure Blood Pressure 49/31 [right arm] O2 Sat by Pulse 100 Oximetry 12/30/20 12/30/20 12/30/20 13:23 13:46 14:00 Temperature Pulse Rate 85 Respiratory 31 H 32 H Rate Blood Pressure 47/27 118/94 168/33 Blood Pressure [right arm] O2 Sat by Pulse 92 Oximetry 12/30/20 12/30/20 12/30/20 14:18 14:34 14:46 Temperature Pulse Rate Respiratory Rate Blood Pressure 116/97 125/90 130/86 Blood Pressure [right arm] O2 Sat by Pulse Oximetry - Reevaluation(s) Reevaluation #1: 12/30/20 13:07 The patient continued to have hypotension despite the IV fluid resuscitation and 4 units of packed red blood cells transfused. The decision was made to place a central line catheter. I spoke to the patient regarding the central line procedure and was given verbal consent. The central line catheter was placed as per the procedure section. Shortly after the central line was placed, the patient began having some agonal breathing. She has some bloody secretions seen. The decision was made to intubate the patient. As we were getting ready to intubate the patient, the patient began having significant bradycardia with a heart rate of about 30 bpm. A dose of atropine was given. This did not appear to help much. The patient was then given bag valve ventilation. The patient had this bradycardia along with a thready pulse. We started ACLS protocol. The patient was given epinephrine and a dose of sodium bicarbonate, chest compressions, and bag valve ventilation. During this time I intubated the patient using the glide scope as per the procedure section. After 1 round of ACLS the patient had return of spontaneous circulation. The patient has been accepted for transfer to [facility] to their ICU. We will continue to resuscitate the patient. - Consultations Consultation #1: 12/30/20 07:59 I spoke to the dietitian teacher on-call, Dr. Moy. She recommends that the patient be transferred to another facility as we do not have GI lab available and with the significant anemia and her history, ulcers and/or varices are within the differential. If I am unable to find an accepting facility, then gastroenterology will be contacted again. Consultation #2: 12/30/20 11:40 I spoke with the dietitian teacher at [facility]. They do not have any ICU beds available and are unable to accept the patient. The dietitian teacher agreed with the plan thus far but recommends adding octreotide. Consultation #3: 12/30/20 13:05 I spoke to the water regulator and valve repairer at [facility], Dr. Luis, who has accepted the patient for transfer to their facility. - Central Line Placement Right Femoral Consent Obtained: verbal consent, emergent situation Time Out Performed: Yes Patient Placed on Monitor/Pulse Ox: Yes MD Prep: mask, gown, gloves Central Line Prep: Chlorhexidine scrub Local Anesthesia Used: Lidocaine 1% Amount of Anesthesia Used (mls): 3 Ultrasound Used for Placement: Yes Central Line Lumen Inserted: triple Reason for Insertion: Volume Resuscitation Central Line Position: good blood return, all ports aspirated, flus, sutured in place with nyl Dressing Applied: Tegaderm, sterile gauze/tape Patient Tolerated Procedure: well Complications: none - Intubation Laryngoscope: other (Treadwell scope) Size: 3 ET Tube Size: 7.5 Tube Secured Depth (cm): 24 Tube Secured Location: lips Tube Placement Confirmation: visualized tube passing t, equal breath sounds bilat, confirmation by capnometr Patient Tolerated Procedure: well Intubation Complications: none KASH score - Kash Score Age > 65: (0) No Aspirin use within the Past 7 Days: (0) No 3 or more CAD Risk Factors: (0) No 2 or more Angina events in past 24 hrs: (1) Yes Known CAD with more than 50% Stenosis: (0) No Elevated Cardiac Markers: (0) No ST Deviation Greater than 0.5mm: (0) No KASH Score: 1 ED Medical Decision Making - Lab Data Result diagrams: 12/30/20 06:34 12/30/20 06:34 Lab Results 12/30/20 12/30/20 12/30/20 Range/Units 06:34 06:34 06:34 WBC 11.3 H (4.5-11.0) K/mm3 RBC 1.14 L (3.65-5.03) M/mm3 Hgb 3.3 L* (10.1-14.3) gm/dl Hct 11.9 L* (30.3-42.9) % MCV 105 H (79-97) fl MCH 29 (28-32) pg MCHC 27 L (30-34) % RDW 21.5 H (13.2-15.2) % Plt Count 85 L (140-440) K/mm3 Add Manual Diff Complete Total Counted 100 Seg Neuts % (Manual) 89.0 H (40.0-70.0) % Lymphocytes % (Manual) 5.0 L (13.4-35.0) % Monocytes % (Manual) 3.0 (0.0-7.3) % Metamyelocytes % 3.0 % Nucleated RBC % Not Reportable Seg Neutrophils # Man 10.1 H (1.8-7.7) K/mm3 Band Neutrophils # 0.0 K/mm3 Lymphocytes # (Manual) 0.6 L (1.2-5.4) K/mm3 Abs React Lymphs (Man) 0.0 K/mm3 Monocytes # (Manual) 0.3 (0.0-0.8) K/mm3 Eosinophils # (Manual) 0.0 (0.0-0.4) K/mm3 Basophils # (Manual) 0.0 (0.0-0.1) K/mm3 Metamyelocytes # 0.3 K/mm3 Myelocytes # 0.0 K/mm3 Promyelocytes # 0.0 K/mm3 Blast Cells # 0.0 K/mm3 WBC Morphology Not Reportable Hypersegmented Neuts Not Reportable Hyposegmented Neuts Not Reportable Hypogranular Neuts Not Reportable Smudge Cells Not Reportable Toxic Granulation Not Reportable Toxic Vacuolation Not Reportable Dohle Bodies Not Reportable Pelger-Huet Anomaly Not Reportable Ezequiel Rods Not Reportable Platelet Estimate Consistent w auto Clumped Platelets Not Reportable Plt Clumps, EDTA Not Reportable Large Platelets Not Reportable Giant Platelets Not Reportable Platelet Satelliting Not Reportable Plt Morphology Comment Not Reportable RBC Morphology Not Reportable Dimorphic RBCs Not Reportable Polychromasia Few Hypochromasia 1+ Poikilocytosis Not Reportable Anisocytosis Not Reportable Microcytosis Not Reportable Macrocytosis Not Reportable Spherocytes Not Reportable Pappenheimer Bodies Not Reportable Sickle Cells Not Reportable Target Cells Not Reportable Tear Drop Cells Few Ovalocytes Not Reportable Helmet Cells Not Reportable Mackenzie-[place] Bodies Not Reportable [place] Rings Not Reportable Mary Cells Not Reportable Bite Cells Not Reportable Crenated Cell Not Reportable Elliptocytes Not Reportable Acanthocytes (Spur) Not Reportable Rouleaux Not Reportable Hemoglobin C Crystals Not Reportable Schistocytes Not Reportable Malaria parasites Not Reportable Jesus Bodies Not Reportable Hem Pathologist Commnt No PT 33.0 H (12.2-14.9) Sec. INR 3.20 H (0.87-1.13) APTT 75.1 H* (24.2-36.6) Sec. Sodium 142 (137-145) mmol/L Potassium 4.0 (3.6-5.0) mmol/L Chloride 110.2 H (98-107) mmol/L Carbon Dioxide 6 L* (22-30) mmol/L Anion Gap 30 mmol/L BUN 22 H (7-17) mg/dL Creatinine 1.4 H (0.6-1.2) mg/dL Estimated GFR 42 ml/min BUN/Creatinine Ratio 16 % Glucose 65 (65-100) mg/dL POC Glucose (70-105) mg/dL Calcium 6.5 L (8.4-10.2) mg/dL Total Bilirubin 0.50 (0.1-1.2) mg/dL AST 145 H (5-40) units/L ALT 46 (7-56) units/L Alkaline Phosphatase 99 (35-129) units/L Troponin T < 0.010 (0.00-0.029) ng/mL Total Protein 4.4 L (6.3-8.2) g/dL Albumin 1.6 L (3.9-5) g/dL Albumin/Globulin Ratio 0.6 % HCG, Qual (Negative) Plasma/Serum Alcohol (0-0.07) % Blood Type Antibody Screen Crossmatch 12/30/20 12/30/20 12/30/20 Range/Units 06:34 06:34 07:27 WBC (4.5-11.0) K/mm3 RBC (3.65-5.03) M/mm3 Hgb (10.1-14.3) gm/dl Hct (30.3-42.9) % MCV (79-97) fl MCH (28-32) pg MCHC (30-34) % RDW (13.2-15.2) % Plt Count (140-440) K/mm3 Add Manual Diff Total Counted Seg Neuts % (Manual) (40.0-70.0) % Lymphocytes % (Manual) (13.4-35.0) % Monocytes % (Manual) (0.0-7.3) % Metamyelocytes % % Nucleated RBC % Seg Neutrophils # Man (1.8-7.7) K/mm3 Band Neutrophils # K/mm3 Lymphocytes # (Manual) (1.2-5.4) K/mm3 Abs React Lymphs (Man) K/mm3 Monocytes # (Manual) (0.0-0.8) K/mm3 Eosinophils # (Manual) (0.0-0.4) K/mm3 Basophils # (Manual) (0.0-0.1) K/mm3 Metamyelocytes # K/mm3 Myelocytes # K/mm3 Promyelocytes # K/mm3 Blast Cells # K/mm3 WBC Morphology Hypersegmented Neuts Hyposegmented Neuts Hypogranular Neuts Smudge Cells Toxic Granulation Toxic Vacuolation Dohle Bodies Pelger-Huet Anomaly Ezequiel Rods Platelet Estimate Clumped Platelets Plt Clumps, EDTA Large Platelets Giant Platelets Platelet Satelliting Plt Morphology Comment RBC Morphology Dimorphic RBCs Polychromasia Hypochromasia Poikilocytosis Anisocytosis Microcytosis Macrocytosis Spherocytes Pappenheimer Bodies Sickle Cells Target Cells Tear Drop Cells Ovalocytes Helmet Cells Mackenzie-[place] Bodies [place] Rings Caroline Cells Bite Cells Crenated Cell Elliptocytes Acanthocytes (Spur) Rouleaux Hemoglobin C Crystals Schistocytes Malaria parasites Jesus Bodies Hem Pathologist Commnt PT (12.2-14.9) Sec. INR (0.87-1.13) APTT (24.2-36.6) Sec. Sodium (137-145) mmol/L Potassium (3.6-5.0) mmol/L Chloride (98-107) mmol/L Carbon Dioxide (22-30) mmol/L Anion Gap mmol/L BUN (7-17) mg/dL Creatinine (0.6-1.2) mg/dL Estimated GFR ml/min BUN/Creatinine Ratio % Glucose (65-100) mg/dL POC Glucose (70-105) mg/dL Calcium (8.4-10.2) mg/dL Total Bilirubin (0.1-1.2) mg/dL AST (5-40) units/L ALT (7-56) units/L Alkaline Phosphatase (35-129) units/L Troponin T (0.00-0.029) ng/mL Total Protein (6.3-8.2) g/dL Albumin (3.9-5) g/dL Albumin/Globulin Ratio % HCG, Qual Negative (Negative) Plasma/Serum Alcohol 0.08 H (0-0.07) % Blood Type O POSITIVE Antibody Screen Negative Crossmatch See Detail 12/30/20 12/30/20 Range/Units 14:19 14:26 WBC (4.5-11.0) K/mm3 RBC (3.65-5.03) M/mm3 Hgb (10.1-14.3) gm/dl Hct (30.3-42.9) % MCV (79-97) fl MCH (28-32) pg MCHC (30-34) % RDW (13.2-15.2) % Plt Count (140-440) K/mm3 Add Manual Diff Total Counted Seg Neuts % (Manual) (40.0-70.0) % Lymphocytes % (Manual) (13.4-35.0) % Monocytes % (Manual) (0.0-7.3) % Metamyelocytes % % Nucleated RBC % Seg Neutrophils # Man (1.8-7.7) K/mm3 Band Neutrophils # K/mm3 Lymphocytes # (Manual) (1.2-5.4) K/mm3 Abs React Lymphs (Man) K/mm3 Monocytes # (Manual) (0.0-0.8) K/mm3 Eosinophils # (Manual) (0.0-0.4) K/mm3 Basophils # (Manual) (0.0-0.1) K/mm3 Metamyelocytes # K/mm3 Myelocytes # K/mm3 Promyelocytes # K/mm3 Blast Cells # K/mm3 WBC Morphology Hypersegmented Neuts Hyposegmented Neuts Hypogranular Neuts Smudge Cells Toxic Granulation Toxic Vacuolation Dohle Bodies Pelger-Huet Anomaly Ezequiel Rods Platelet Estimate Clumped Platelets Plt Clumps, EDTA Large Platelets Giant Platelets Platelet Satelliting Plt Morphology Comment RBC Morphology Dimorphic RBCs Polychromasia Hypochromasia Poikilocytosis Anisocytosis Microcytosis Macrocytosis Spherocytes Pappenheimer Bodies Sickle Cells Target Cells Tear Drop Cells Ovalocytes Helmet Cells Mackenzie-[place] Bodies [place] Rings Caroline Cells Bite Cells Crenated Cell Elliptocytes Acanthocytes (Spur) Rouleaux Hemoglobin C Crystals Schistocytes Malaria parasites Jesus Bodies Hem Pathologist Commnt PT (12.2-14.9) Sec. INR (0.87-1.13) APTT (24.2-36.6) Sec. Sodium (137-145) mmol/L Potassium (3.6-5.0) mmol/L Chloride (98-107) mmol/L Carbon Dioxide (22-30) mmol/L Anion Gap mmol/L BUN (7-17) mg/dL Creatinine (0.6-1.2) mg/dL Estimated GFR ml/min BUN/Creatinine Ratio % Glucose (65-100) mg/dL POC Glucose < 10 L 202 H (70-105) mg/dL Calcium (8.4-10.2) mg/dL Total Bilirubin (0.1-1.2) mg/dL AST (5-40) units/L ALT (7-56) units/L Alkaline Phosphatase (35-129) units/L Troponin T (0.00-0.029) ng/mL Total Protein (6.3-8.2) g/dL Albumin (3.9-5) g/dL Albumin/Globulin Ratio % HCG, Qual (Negative) Plasma/Serum Alcohol (0-0.07) % Blood Type Antibody Screen Crossmatch - EKG Data -: EKG Interpreted by Me EKG shows normal: sinus rhythm, axis, intervals, QRS complexes, ST-T waves Rate: normal - EKG Data When compared to previous EKG there are: no significant change Interpretation: normal EKG, unchanged when compared t (05/25/20) 12/30/20 06:34 Initial EKG reading by ER physician at 6:24 AM - Radiology Data Radiology results: image reviewed interpreted by me: Chest x-ray does not show any acute process. There are no pleural effusions, obvious pneumonia and there is no pneumothorax. No significant cardiomegaly. Abdominal x-ray shows nonspecific nonobstructive bowel gas. - Medical Decision Making This patient initially presents with the complaint of midsternal chest pain, and nausea with gross hematemesis. On examination the patient also has some mild generalized abdominal tenderness to palpation and does admit to some recent abdominal discomfort as well. Upon presentation the patient is hypotensive with a MAP of about 45. The patient was given multiple liters of IV fluid resuscitation as the patient's blood was drawn and resulted. The patient has multiple lab abnormalities. She has a hemoglobin of 3.3, thrombocytopenia with a platelet count of 85. She has elevated coags including PT, PTT and INR, without being on anticoagulation. There is an elevation in the AST level. The patient has a bicarb of 6. Blood alcohol level is 0.08. The patient has some renal insufficiency with a GFR of 42. After the patient was found to have the significant anemia 4 units of packed red blood cells were ordered for transfusion. The patient was placed on Protonix bolus and then a Protonix drip. About this time I spoke with our gastroenterology service who recommended coco coffman as we do not have endoscopic capabilities until Friday. The patient appears to have probable liver cirrhosis and probable esophageal varices and may need urgent intervention. I contacted [facility] but they did not have any ICU beds available and could not accept transfer. I put a phone call into the [facility] system. During this time the patient continued to have some hypotension despite the IV fluid resuscitation and transfusion of packed red blood cells. A right femoral central venous catheter line was placed under ultrasound guidance and the patient was started on Levophed. Shortly afterwards the patient began to have bradycardia, a weak and thready pulse, and some agonal appearing respirations with bloody secretions, so we did a round of ACLS protocol including intubating as per the procedure section. We did achieve ROSC after 1 round. It was about this time that I was able to talk with the water regulator and valve repairer at the [facility] and the patient was accepted for transfer. Once we were given a bed assignment the air ambulance was called. As the nurses from air transport arrived, the patient once again started to decompensate. She had hypotension despite being maxed out on the Levophed and had a weak and thready pulse. An Accu-Chek was done and the patient was found to be critically low and was given an amp of D50. Repeat blood sugar was up greater than 200. We did another round of ACLS protocol including giving a dose of epinephrine, sodium bicarbonate, calcium, and once again there was ROSC. The patient was switched from Levophed to an epinephrine drip. She was given another 2 units of packed red blood cells and was given some plasma by the air ambulance team. The patient is currently in route to [facility] and her condition is critical. Critical Care Time: Yes Critical care time in (mins) excluding proc time.: 75 Critical care attestation.: If time is entered above; I have spent that time in minutes in the direct care of this critically ill patient, excluding procedure time. Critical care time was spent on this patient in doing her initial evaluation, multiple reevaluations, ordering and interpretation of labs and imaging, multiple units of packed red blood cells for transfusion secondary to her anemia and hypotension, IV fluid resuscitation, supervision of ACLS protocol, discussion with multiple dietitian teacher and water regulator and valve repairer, multiple discussions with the patient. This does not include the time spent doing the central line or intubation procedures. Critical Care Time: 75 minutes ED Disposition Clinical Impression: Anemia requiring transfusions, Acute renal insufficiency, Abnormal INR, Thrombocytopenia, Hemorrhagic shock GI bleed Qualifiers: GI bleed type/associated pathology: unspecified gastrointestinal hemorrhage t ype Qualified Code(s): K92.2 - Gastrointestinal hemorrhage, unspecified Hypotension Qualifiers: Hypotension type: unspecified hypotension type Qualified Code(s): I95.9 - Hypotension, unspecified Disposition: DC/TX-70 ANOTHER TYPE HLTHCARE Is pt being admited?: No Condition: Critical Time of Disposition: 15:53
[2020-12-30 06:56] LABS: Mean Corpuscular HGB Conc 27 % (30-34); Mean Corpuscular Volume 105 fl (79-97); Red Blood Count 1.14 M/mm3 (3.65-5.03)
[2020-12-30 07:02] LABS: Hematocrit 11.9 % (30.3-42.9); Hemoglobin 3.3 gm/dl (10.1-14.3); Platelet Count 85 K/mm3 (140-440); Red Cell Distribution Width 21.5 % (13.2-15.2)
[2020-12-30] MEDS ORDERED: SODIUM CHLORIDE 0.9% 500 ML 500 ML IV ONE ×3 (07:05→13:31)
[2020-12-30 07:07] LABS: INR 3.2 (0.87-1.13)
[2020-12-30 07:10] LABS: Partial Thromboplastin Time 75.1 Sec. (24.2-36.6)
[2020-12-30 07:15] LABS: BUN/Creatinine Ratio 16
[2020-12-30 07:40] LABS: Blood Urea Nitrogen 22 mg/dL (7-17); Calcium 6.5 mg/dL (8.4-10.2)
[2020-12-30 07:41] LABS: Alanine Aminotransferase 46 units/L (7-56); Albumin 1.6 g/dL (3.9-5); Hemolysis Index 3
[2020-12-30] MEDS ORDERED: DEXTROSE 50% IN WATER (25GM) 50 ML SYRINGE IV ONE ×2 (07:54→12:43)
--- NOTE | 2020-12-30 08:21 | XRay Report ---
ABDOMEN 3 VIEW(S) INCLUDING CHEST INDICATION / CLINICAL INFORMATION: CP, nausea with vomiting. COMPARISON: None available. FINDINGS: SUPPORT DEVICES: None. HEART / MEDIASTINUM: No significant abnormality. LUNGS / PLEURA: No significant pulmonary or pleural abnormality. No pneumothorax BOWEL: No dilated bowel. FREE AIR / EXTRALUMINAL GAS: None seen. CALCIFICATIONS: No significant abnormal calcifications. SKELETAL STRUCTURES: No significant abnormality. IMPRESSION: 1. No significant abnormality. Signer Name: Luca Herrera MD Signed: 12/30/2020 8:16 AM Workstation Name: [id number]
[2020-12-30] MEDS ORDERED: fentaNYL 100 MCG/2 ML INJ IV ONE (09:43)
[2020-12-30] MEDS ORDERED: PANTOPRAZOLE 80 MG in SODIUM CHLORIDE 0.9% 100 ML IV SCH (10:00)
[2020-12-30 10:29] LABS: Total Cells Counted 100
[2020-12-30 10:31] LABS: Hypochromasia 1+; Platelet Estimate Consistent w Auto; Tear Drop Cells Few
[2020-12-30] MEDS ORDERED: NORepinephrine/NS 4 MG-250 ML 4 MG/250 ML BAG IV ONE (12:39)
[2020-12-30] MEDS ORDERED: NORepinephrine/NS 4 MG-250 ML 4 MG/250 ML BAG IV SCH (12:39)
[2020-12-30] MEDS ORDERED: EPINEPHrine 1 MG/10 ML SYRINGE ONE (12:43)
[2020-12-30] MEDS ORDERED: SODIUM BICARB 8.4% 50 MEQ/50 ML SYRINGE IV ONE (12:43)
[2020-12-30] MEDS ORDERED: CALCIUM CHLORIDE 1,000 MG/10 ML SYRINGE IV ONE (12:43)
[2020-12-30] MEDS ORDERED: ATROPINE 0.1% (1 MG/10 ML) CARDIAC SYRINGE ONE (12:44)
[2020-12-30] MEDS ORDERED: KETAMINE 500 MG/5 ML VIAL MDV ONE (12:56)
[2020-12-30] MEDS ORDERED: SODIUM CHLORIDE 0.9% 1000 ML 1,000 ML ONE ×2 (13:02→14:57)
[2020-12-30] MEDS ORDERED: fentaNYL 100 MCG/2 ML INJ IV PRN (13:06)
[2020-12-30] MEDS ORDERED: MINERAL OIL/PETROLATUM, WHITE OPHTH OINT 3.5 GM OU PRN (13:06)
[2020-12-30] MEDS ORDERED: LIP THERAPY VASELINE TP PRN (13:06)
[2020-12-30] MEDS ORDERED: OCTREOTIDE 50 MCG/1 ML INJ IV ONE (13:20)
--- NOTE | 2020-12-30 13:44 | XRay Report ---
ABDOMEN, SINGLE VIEW INDICATION / CLINICAL INFORMATION: OG tube. COMPARISON: 12/30/2020 FINDINGS: NG tube has been placed in the interim. The tip is in the midportion of the stomach and is in satisfa ctory position. Mild gaseous loops of small bowel are seen throughout the central abdomen. IMPRESSION: Satisfactory positioning of NG tube. Signer Name: Meka Levi MD Signed: 12/30/2020 1:39 PM Workstation Name: [id number]
--- NOTE | 2020-12-30 13:46 | XRay Report ---
CHEST 1 VIEW INDICATION / CLINICAL INFORMATION: ETT placement. COMPARISON: 12/30/2020 at 0737 hours FINDINGS: SUPPORT DEVICES: ET tube is present. The tip terminates in the mid trachea and is approximately 3.3 c m from the ira[place]. NG tube is present with tip in the midportion of the stomach. HEART / MEDIASTINUM: No significant abnormality. LUNGS / PLEURA: Since the earlier chest radiograph, pulmonary opacities have developed throughout bot h lungs, slightly greater throughout the right lung. The appearance is more suggestive of multifocal bilateral pneumonia, but pulmonary edema could also be a possible etiology. No pleural effusion. No p neumothorax. ADDITIONAL FINDINGS: No significant additional findings. IMPRESSION: 1. Satisfactory positioning of ET tube. 2. Interval development of bilateral multifocal pulmonary opacities. I would favor multifocal pneumon ia, but pulmonary edema is within the differential as well and clinical correlation is recommended. Signer Name: Meka Levi MD Signed: 12/30/2020 1:42 PM Workstation Name: [id number]
[2020-12-30] MEDS ORDERED: fentaNYL DRIP Premix 2,000 MCG/100 ML BAG IV SCH (14:00)
[2020-12-30] MEDS ORDERED: EPINEPHrine 1 MG/1 ML 8 MG in SODIUM CHLORIDE 0.9% 250ML 242 ML IV ONE (14:15)
[2020-12-30 15:22] VITALS: BP 130/86
--- NOTE | 2021-01-01 09:19 | Electrocardiograph Report ---
[facility] Test Date: 2020-12-30 Test Time: 06:21:22 Pat Name: JIMENEZ HELLER Department: Room: Gender: F [employer] Ad[employer]er: LUDIVINA : 1980 Requested By: CAMERON PAREDES Order Number: [id number] Reading MD: Moody Vides Measurements Intervals [place] Rate: 93 P: 65 [place]: 137 QRS: 59 QRSD: 95 T: 28 QT: 369 QTc: 460 Interpretive Statements Sinus rhythm Probable left atrial enlargement No previous ECG available for comparison Electronically Signed On 01-01-2021 6:19:31 PDT by Moody Vides
== END 2020-12-30 16:00 | disposition other institution (70) ==
LOC: ED 05:50
DX: D64.9 Anemia, unspecified (principal); N28.9 Disorder of kidney and ureter, unspecified; D69.6 Thrombocytopenia, unspecified; R57.8 Other shock; I95.9 Hypotension, unspecified; K92.2 Gastrointestinal hemorrhage, unspecified; I10 Essential (primary) hypertension; J45.909 Unspecified asthma, uncomplicated; Z21 Asymptomatic human immunodeficiency virus [HIV] infection status; Z98.890 Other specified postprocedural states; Z79.899 Other long term (current) drug therapy; Z88.0 Allergy status to penicillin; Z88.8 Allergy status to other drugs, medicaments and biological substances
CPT/HCPCS: 31500; 36415; 36430; 36556; 71045; 74018; 74022; 80053; 82962; 84484; 84703; 85007; 85025; 85610; 85730; 86850; 86900; 86901; 86920; 93005; 96361; 96374; 96375; 96376; 99291; 99292; C9113; J0171; J0461; J2405; J7030; J7040; J7050; P9016; 80320; 94002; G0480; J2354